=== PATIENT | female | born 1950 | race Caucasian/White ===

== ENCOUNTER 2017-11-14 04:36 | Inpatient (IN) | payer OTHER, MEDICARE ==
[~2017-11-14] VITALS: Ht 157.5 cm; Wt 102.1 kg
[~2017-11-14 04:36] MED LIST: CRESTOR40 M2 PO; LEVOTHYROXINE88 MCG PO; VENLAFAXINE HCL75 M1 PO
--- NOTE | 2017-11-14 09:30 | Operative Report ---
Operative/Inv Procedure Report Surgery Date: 11/14/17 Name of Procedure: Left total knee arthroplasty Pre-Operative Diagnosis: Primary osteoarthritis left knee Post-Operative Diagnosis: Same Estimated Blood Loss: less than 50ml Surgeon/Gasoline Pump Installer: Dilan CODY,Maxwell GEORGE Anesthesia: block IV Fluids: See anesthesia record Implants: Striker triathlon posterior stabilize knee size 3 femur, size 3 tibia, 9 mm polyethylene insert, 29 patella Drains: None Specimens: Bone to pathology Tourniquet: 54 minutes Complications: None Condition: Stable Operative Indication: Patient is a pleasant 67-year-old female who has failed conservative treatment for her primary osteoarthritis of her left knee. She was indicated for a left total knee arthroplasty. Skilled set of hands was necessary provided by physician certified first assistant Capo Ulrich who aided with retraction limb positioning and component assembly throughout the case. Risks and benefits of procedure were discussed with the patient in detail in the office and she wished to proceed. Operative/Procedure Note Note: Once informed consent was obtained and the correct limb was identified patient brought to operative room placed on table supine position. After administration of spinal anesthesia a thigh tourniquet was placed and a Tipton catheter was placed. Left lower extremity is prepped and draped in usual sterile fashion. To begin the procedure standard midline incision was made for a total knee arthroplasty. Sharp dissection was carried down through the skin and subcutaneous tissue and fat. A medial parapatellar arthrotomy was performed and the patella was everted. The fat pad is removed from the patellar tendon. Osteophytes removed patella and the thickness of the patella was measured to be 20 mm. A plan resection of 8 mm of bone was taken off the patella using patellar jig without complication. Patella was then sized to be size 29 symmetric patella. The jig for the 29 patella was placed on the patella and the lug holes were drilled. This point the patella was protected and retracted laterally. The knee is placed in flexion. The cruciate ligament to resected sharply. The medial and lateral menisci resected sharply. Step drill was used to enter the femoral canal of the femur. Intramedullary femoral distal cutting guide was placed with a 6 valgus cut and 10 mm of bone resection. Distal cut was made without, patient. The femoral sizer was placed and we sized the femur to be a size 3 femur. A size 3 4-in-1 femoral cutting block was placed and the anterior, posterior, chamfer cuts were made without compensation. Bone was passed off as specimen. The box cut for a size 3 femur was placed and the box cut was made. At this point curved osteotomes were used to remove any posterior osteophytes off the femoral condyles. Attention was then turned to the tibia. Intramedullary canal of the tibia was entered with a step drill and the intramedullary tibial cutting guide was placed. A plan resection of 4 mm of bone off the medial side of the tibia was performed. The guide was pinned in place and the cut was made. Bone was passed off as specimen. The tibia sized to be a size 3 tibia. Trial reduction was done with a size 3 femur, size 3 tibia and a 9 mm polyethylene insert. The knee had full extension and was stable to varus and valgus stress at 0 and 30 and 60 . The patella tracked nicely. Rotation of tibial cut was marked. The tibial component was pinned in place and the keel cut was made. All components removed and the knee was pulse lavaged. Cement was mixed on the back table. These components were then cemented in place with the tibial component cemented first followed by the femoral component and the patellar button. All excess cement was removed with curettes. The knee was placed in full extension with a 9 [address] trial in [address]. Once the cement was hardened the knee was taken through a range of motion again. Patient full extension and 120 of flexion. It was stable to varus and valgus stress. The trial insert was removed and 9 mm polyethylene insert was opened and locked into place on the tray. The tourniquet was released and bleeding was stopped with Bovie cautery. The arthrotomy was then closed #1 Vicryl interrupted sutures. Subcutaneous tissues closed with #1 Vicryl and 2-0 Vicryl interrupted sutures. Skin was closed betty and sterile dressings applied. Patient awakened taken recovery in stable condition.
[2017-11-14 11:47] VITALS: BP 148/86
--- NOTE | 2017-11-14 15:32 | Cons- Medical ---
Adwoa Maurice 11/14/17 1532: General Information and HPI Consulting Request Date of Consult: 11/14/17 Requested By: Dilan CODY,Maxwell Garcia Reason for Consult: Management of hypertension and hyperlipidemia Source of Information: patient History of Present Illness: Patient is a 67-year-old overweight woman with a past medical history significant for hypothyroidism, hypertension/hyperlipidemia, osteoarthritis, diverticulosis, cataract has been admitted to general medicine floor after Left total knee arthroplasty for severe primary osteoarthritis. Patient mentions that she has been in her good health except for worsening left knee pain due to her underlying osteoarthritis, underwent left total knee arthroplasty by Dr. Bey, tolerated the procedure well. At the time of evaluation patient was lying comfortably in the bed denied any chest discomfort or breathing palpitations. Pain well controlled at the site of surgery. Denies any nausea vomiting abdominal discomfort. Allergies/Medications Allergies: Coded Allergies: No Known Allergies (11/02/17) Review of Systems Review of Systems Constitutional: Denies: chills, diaphoresis, fever, malaise. EENTM: Denies: blurred vision, double vision, visual changes. Cardiovascular: Denies: chest pain, edema, orthopena. Respiratory: Denies: cough, hemoptysis, orthopnea. GI: Denies: constipation. Genitourinary: Denies: discharge, dysuria. Musculoskeletal: Denies: back pain, gout. 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 Home Services at Home: None Smoking Status: Former Smoker Exam & Diagnostic Data Last 24 Hrs of Vital Signs/I&O Vital Signs Date Time Temp Pulse Resp B/P B/P Pulse O2 O2 Flow FiO2 Mean Ox Delivery Rate 11/14 1541 97.6 71 20 146/98 94 11/14 1411 96.2 11/14 1147 95 11/14 1147 93.7 60 18 148/86 95 Room Air Intake & Output 11/14 1600 11/14 0800 11/14 0000 Intake Total Output Total 425 Balance -425 Output, Urine 425 Patient 225 lb Weight Weight Reported by Patient Measurement Method Physical Exam General Appearance: well developed/nourished, no apparent distress Head: atraumatic, normal appearance Respiratory: normal breath sounds, chest non-tender Cardiovascular: regular rate/rhythm, edema Assessment/Plan Assessment/Plan Patient is a 67-year-old overweight woman with a past medical history significant for hypothyroidism, hypertension/hyperlipidemia, osteoarthritis, diverticulosis, cataract has been admitted to general medicine floor after Left total knee arthroplasty for severe primary osteoarthritis. We have been consulted for comanagement of hypertension and hyperlipidemia, patient is currently stable from medical point a few continue home medications and pain control/anti-coagulation as per surgery. Hypertension and hyperlipidemia * Continue statins History of hypothyroidism * Continue levothyroxin Severe left knee osteoarthritis status post left total knee arthroplasty post op day 0 * Continue pain control and anticoagulation as per surgery. Consult Acknowledgment - Thank you for your consult request. Beto Jain MD 11/14/17 3001: General Information and HPI Allergies/Medications Home Med List: Apixaban (Eliquis) 2.5 MG TABLET 2.5 MG PO BID DVT PPX Docusate Sodium 100 MG CAPSULE 100 MG PO BID CONSTIPATION Levothyroxine Sodium 88 MCG TABLET 1 TAB PO DAILY REPLACEMENT (Reported) Oxycodone HCl/Acetaminophen (Percocet 5-325 MG Tablet) 5 MG-325 MG TABLET 1-2 TAB PO Q4P PRN PAIN SCALE Rosuvastatin Calcium (Crestor) 40 MG TABLET 1 TAB PO DAILY CHOLESTEROL ( Reported) Sennosides/Docusate Sodium (Senna Plus Tablet) 8.6 MG-50 MG TABLET 2 TAB PO AT BEDTIME NEEDED PRN NO BM IN TWO DAYS Venlafaxine HCl (Venlafaxine HCl ER) 75 MG CAP.ER.24H 1 CAP PO DAILY ANXIETY (Reported) Exam & Diagnostic Data Last 24 Hrs of Labs/Ministerio: NONE Assessment/Plan Consult Acknowledgment - Thank you for your consult request. Attending MD Review Statement Attending Statement Attending MD Statement: examined this patient, discuss w/resident/PA/RESEARCH WORKER ENCYCLOPEDIA, agreed w/resident/PA/RESEARCH WORKER ENCYCLOPEDIA, discussed with family, reviewed EMR data (avail), amended to note Attending Assessment/Plan: The patient is a 67 yo female with h/o hypothyroidism, hyperlipidemia, OA, SUMANTH ( on CPAP), and diverticulosis who underwent an elected left TKR today for OA of knee with progressive discomfort. Post operatively she is without complaints. Physical Exam: VS T 97.6, P 71, R 20, BP 146/98, PO 94% HEENT: eyes- PERRLA, EOMI michael- moist mucosa Neck: no adenopathy, bruits or JVD Chest: clear Cor: RRR nl S1, S2 w/o murm Abd: BS+, soft, NT Ext: s/p left TKR, no edema, pulses 2+ Neuro: alert & oriented, non-focal exam Impression/Plan: #S/P Left TKR- for OA- doing well postoperatively. Plan: Post op care as per orthopedics. #Hypothyroid- clinically euthyroid. Plan: Continue Levothyroxine. #Hyperlipidemia- on rosuvastatin. Plan: Continue statin. #SUMANTH- uses CPAP at night. Plan: Continue CPAP.
[2017-11-14 15:41] VITALS: BP 146/98
--- NOTE | 2017-11-14 17:40 | Admission Core Measures ---
Acute Coronary Syndrome (CM) ACS Core Measures Acute Coronary Syndrome Diagnosis No Congestive Heart Failure (NEW) CHF Core Measures Congestive Heart Failure Diagnosis No Cerebrovascular Accident (NEW) CVA Core Measures CVA/TIA Diagnosis No Venous Thromboembolism VTE Core Travis (View Protocol) VTE Risk Factors Surgery No Mechanical VTE Prophylaxis d/t N/A MechProphylax Ordered No VTE Pharm Prophylaxis d/t NA PharmProphylax ordered Problem List As ranked by this Provider includes Assessment & Plan 1. Unilateral primary osteoarthritis, left knee HOME MEDS Home Med List Levothyroxine Sodium 88 MCG TABLET 1 TAB PO DAILY REPLACEMENT (Reported) Rosuvastatin Calcium (Crestor) 40 MG TABLET 1 TAB PO DAILY CHOLESTEROL ( Reported) Venlafaxine HCl (Venlafaxine HCl ER) 75 MG CAP.ER.24H 1 CAP PO DAILY ANXIETY (Reported)
--- NOTE | 2017-11-14 17:40 | PN- Orthopedic ---
Subjective Subjective: No acute post operative events reported. Pain controlled presently. Pt has been oob to chair with no difficulty. No complaints of nausea or vomitting. No complaints of chest pain, shortness of breath or difficulty breathing. Has matos catheter in place. Objective Vital Signs and I&Os Vital Signs Date Time Temp Pulse Resp B/P B/P Pulse O2 O2 Flow FiO2 Mean Ox Delivery Rate 11/14 1541 97.6 71 20 146/98 94 11/14 1411 96.2 11/14 1147 95 11/14 1147 93.7 60 18 148/86 95 Room Air Intake & Output 11/14 1600 11/14 0800 11/14 0000 11/13 1600 11/13 0800 11/13 0000 Intake Total 1020 Output Total 425 Balance 595 Intake, IV 300 Intake, Oral 720 Number 0 Bowel Movements Output, Urine 425 Patient 225 lb Weight Weight Reported by Patient Measurement Method Physical Exam: General: Alert and oriented x3, no acute distress Cardiac: RRR, s1s2 Pulm: C TA bialterally, non-labored respiratory effort Abd: Soft, non-tender, non-distended Extremiteis: Moves all extremities, distal sensation grossly intact. Skin warm and well perfused. DP pulses palpable bialterally. Bilateral calves soft and non-tender Surgical site: Left knee, dressing dry and itnact. Assessment/Plan Assessment/Plan This is a 67 year old female, POD 0, s/p L TKR -Continue home meds for hld, hypothyroid -Eliquis 2.5 bid to start tomorrow for dvt ppx -ALPS today for mechanical dvt ppx -OOB, wbat, assist at all times -Diet as tolerated -DC matos and iv fluids tomorrow am -Dressing change pod 2 -Antibiotics: Vanc x1 additional dose for abx ppx Will discuss poc with Dr. Kong Core Measures Venous Thromboembolism VTE Risk Factors Surgery No Mechanical VTE Prophylaxis d/t N/A MechProphylax Ordered No VTE Pharm Prophylaxis d/t NA PharmProphylax ordered
--- NOTE | 2017-11-14 17:43 | Patient Discharge Instructions ---
Discharge Instructions General Discharge Information You were seen/treated for: Left knee pain related to unilateral primary osteoarthritis You had these procedures: Left total knee replacement Watch for these problems: Increasing pain despite the use of pain medication Increasing redness, warmth or swelling Drainage of any type from incision Inability to bear weight on operative leg Persistent nausea and vomiting Fever greater than 101.5 degrees Do not soak the wound: Yes No bath, but you may shower: Yes Other wound care: Please keep wound clean and dry. No ointments or lotions of any type on or near incision at any time. No exceptions. Your dressing will be changed by your nurse on the second day after your surgery. Daily dry dressing changes are recommended each day thereafter. Do not soak your wound in a bath at any time until otherwise indicated by your surgeon. You may shower, please dry wound immediately after shower with a clean towel. Diet Continue normal diet: Yes Recommended Diet: Regular Activity Full Activity/No Limits: No Activity Self Limited: Yes Pounds, do NOT lift more than: 10 Activity Limited to: Weight bear as tolerated Acute Coronary Syndrome Inclusion Criteria At DC or during hospital stay patient has or had the following: ACS DIAGNOSIS No Discharge Core Measures Meds if any: Prescribed or Continued at Discharge Meds if any: NOT Prescribed or Continued at Discharge Congestive Heart Failure Inclusion Criteria At DC or during hospital stay patient has or had the following: CHF DIAGNOSIS No Discharge Core Measures Meds if any: Prescribed or Continued at Discharge Meds if any: NOT Prescribed or Continued at Discharge Cerebrovascular accident Inclusion Criteria At DC or during hospital stay patient has or had the following: CVA/TIA Diagnosis No Discharge Core Measures Meds if any: Prescribed or Continued at Discharge Meds if any: NOT Prescribed or Continued at Discharge Venous thromboembolism Inclusion Criteria VTE Diagnosis No VTE Type NONE VTE Confirmed by (Test) NONE Discharge Core Measures - Per Current guidelines, there needs to be overlap - treatment for the first 5 days of Warfarin therapy. - If discharged on Warfarin prior to 5 days of - overlap therapy, the patient will need to be - assessed for post discharge needs including - *Post discharge parental anticoagulation - *Warfarin and/or parental anticoagulation education - *Follow up date to check INR post discharge At least 5 days overlap therapy as Inpatient No Meds if any: Prescribed or Continued at Discharge Note: Overlap Therapy is Warfarin and Anticoagulant Meds if any: NOT Prescribed or Continued at Discharge
--- NOTE | 2017-11-14 17:45 | Surgical Discharge Summary ---
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 Home Who Do You Live With? Patient/Self Services at Home: None What is Your Primary Language? Italian Review of Systems: See H&P Hospital Course Course Attending Physician: Maxwell Kong MD Primary Care Physician: Patient Has No Primary Care Dr Hospital Course: Patient was admitted to the hospital for an elective total joint replacement. The procedure was tolerated well and patient was transferred to a general surgical floor. Diet was advanced and tolerated.. The patient was evaluated and treated by physical therapy. At the time of hospital discharge, the vital signs were stable, neurovascular status was intact, and pain was controlled with the use of oral pain medications. Complications: None Allergies: Coded Allergies: No Known Allergies (11/02/17) Disposition Summary Disposition Principal Diagnosis: Left knee unilateral primary osteoarthritis Additional Diagnosis: None Discharge Disposition: home health services Discharge Instructions General Discharge Information Code Status: Full Code Patient's Diet: Regular, advance as tolerated Patient's Activity: WBAT Follow-Up Instructions/Appts: staple removal 2 weeks after surgery follow up with in 6 weeks Medications at Discharge Discharge Medications: Continue taking these medications: Levothyroxine Sodium (Levothyroxine Sodium) 88 MCG TABLET 1 Tablet ORAL DAILY Rosuvastatin Calcium (Crestor) 40 MG TABLET 1 Tablet ORAL DAILY Venlafaxine HCl (Venlafaxine HCl ER) 75 MG CAP.ER.24H 1 Capsule ORAL DAILY Start taking the following new medications: Apixaban (Eliquis) 2.5 MG TABLET 2.5 Milligram ORAL TWICE DAILY Qty = 60 No Refills Docusate Sodium (Docusate Sodium) 100 MG CAPSULE 100 Milligram ORAL TWICE DAILY Qty = 14 No Refills Oxycodone HCl/Acetaminophen (Percocet 5-325 MG Tablet) 5 MG-325 MG TABLET 1-2 Tablet ORAL EVERY 4 HOURS NEEDED as needed for PAIN SCALE Qty = 36 No Refills Sennosides/Docusate Sodium (Senna Plus Tablet) 8.6 MG-50 MG TABLET 2 Tablet ORAL AT BEDTIME NEEDED as needed for NO BM IN TWO DAYS Qty = 10 No Refills
[2017-11-14 22:49] VITALS: BP 120/70
[2017-11-15 04:00] VITALS: BP 126/68
[2017-11-15 07:52] LABS: ABSOLUTE BASOPHIL COUNT 0 /CUMM (0.0-0.2); ABSOLUTE EOSINOPHIL COUNT 0 /CUMM (0.0-0.7); ABSOLUTE GRANULOCYTE CT 7.2 /CUMM (1.4-6.5); ABSOLUTE LYMPH COUNT 1.1 /CUMM (1.2-3.4); ABSOLUTE MONOCYTE COUNT 0.9 /CUMM (0.10-0.60); BASOPHIL % 0.2 % (0.0-2.0); EOSINOPHIL % 0 % (0-5); GRANULOCYTE % 78.5 % (42.2-75.2); HEMATOCRIT 35.2 % (37-47); MEAN CORPUSCULAR HGB CONC 33.7 G/DL (33.0-37.0); MEAN PLATELET VOLUME 7.7 FL (7.4-10.4); PLATELET COUNT 285 /CUMM (130-400); RBC DISTRIBUTION WIDTH 14.9 % (11.5-14.5); RED BLOOD CELL CT 3.71 /CUMM (4.20-5.40); WHITE BLOOD CELL COUNT 9.2 /CUMM (4.8-10.8)
--- NOTE | 2017-11-15 07:54 | PN- Orthopedic ---
Subjective Subjective: Patient feels well, minimal pain, no acute events overnight, she is in good spirits, she is tolerating her diet and voiding. She has been up and ambulatory without difficulty Objective Vital Signs and I&Os Vital Signs Date Time Temp Pulse Resp B/P B/P Pulse O2 O2 Flow FiO2 Mean Ox Delivery Rate 11/15 0400 97.9 71 18 126/68 95 CPAP 11/15 0000 CPAP 11/14 2249 97.7 69 18 120/70 94 CPAP 11/14 1541 97.6 71 20 146/98 94 11/14 1411 96.2 11/14 1147 95 11/14 1147 93.7 60 18 148/86 95 Room Air Intake & Output 11/15 0811/15 0000 11/14 1600 11/14 0800 11/14 0000 11/13 1600 Intake Total 1500 1020 Output Total 900 700 425 Balance -900 800 595 Intake, IV 600 300 Intake, Oral 900 720 Number 0 0 Bowel Movements Output, Urine 900 700 425 Patient 225 lb Weight Weight Reported by Patient Measurement Method Physical Exam: Well-developed well-nourished no apparent distress. HEENT: Atraumatic, extraocular motion intact Neck: Supple, no lymphadenopathy Respiratory: No respiratory distress Extremities: No edema LEFT lower extremity dressing in place, Dressing clean dry and intact Mild joint effusion Range of motion is 0-90. Compression wrap in place. ALPS in place Neurovascularly intact distally Bilateral calves are supple, nontender. Neuro: Alert and oriented x3 Psych: Mood affect normal, normal memory normal judgment. Skin: Warm and dry, no rash on exposed skin Results Last 48 Hours of Labs: Laboratory Tests 11/15 0650 Chemistry Sodium Pending Potassium Pending Chloride Pending Carbon Dioxide Pending Anion Gap Pending BUN Pending Creatinine Pending BUN/Creatinine Ratio Pending Hematology CBC w Diff Pending WBC Pending RBC Pending Hgb Pending Hct Pending MCV Pending MCH Pending MCHC Pending RDW Pending Plt Count Pending MPV Pending Assessment/Plan Assessment/Plan Postop day #1 status post left total knee arthroplasty Perioperative antibiotics. Pain medication as needed. Out of bed Physical therapy, weightbearing as tolerated DC IV fluids DC Tipton catheter Regular diet Follow a.m. labs Eliquis for DVT prophylaxis ALPS for DVT prophylaxis Regular home meds Dressing change postop day 2 Plan for discharge on postop day #3, home with [facility] services versus [facility] facility (patient prefers home) Pt seen and examined by Dr Kong as well. Core Measures Venous Thromboembolism VTE Risk Factors Surgery No Mechanical VTE Prophylaxis d/t N/A MechProphylax Ordered No VTE Pharm Prophylaxis d/t NA PharmProphylax ordered
--- NOTE | 2017-11-15 08:05 | PN- Medicine Consult ---
See Addendum Assessment/PlanMedical Consult Assessment/Plan Assessment: This is a 67-year-old female with past medical history significant for hypothyroidism, hypertension/hyperlipidemia, osteoarthritis, diverticulosis, cataract who is admitted to surgical team for Left total knee arthroplasty for severe primary osteoarthritis. POD 1. Problem list: #Hypertension #Hyperlipidemia #Hypothyroidism #Severe left knee osteoarthritis status post left total knee arthroplasty post op day 1 Plan: Recommendations: -c/w current meds; statin and levothyroxin -Mx of left total knee arthroplasty per primary team Case to be discussed with attending Dr. Jain. Please refer to his addendum for further recs. Problem List: 1. Unilateral primary osteoarthritis, left knee Subjective Subjective: The patient was seen and examined. She offers no complains. The patient denies any headache, nausea, vomiting, dizziness, lightheadedness, chest pain, shortness of breath, abdominal pain, urinary symptoms. VSS. No events reported. Review of Systems Constitutional: Denies: see HPI. Objective Last 24 Hrs of Vital Signs/I&O Vital Signs Date Time Temp Pulse Resp B/P B/P Pulse O2 O2 Flow FiO2 Mean Ox Delivery Rate 11/15 0400 97.9 71 18 126/68 95 CPAP 11/15 0000 CPAP 11/14 2249 97.7 69 18 120/70 94 CPAP 11/14 1541 97.6 71 20 146/98 94 11/14 1411 96.2 11/14 1147 95 11/14 1147 93.7 60 18 148/86 95 Room Air Intake & Output 11/15 1600 11/15 0800 11/15 0000 Intake Total 720 1500 Output Total 900 700 Balance -180 800 Intake, IV 600 600 Intake, Oral 120 900 Number 0 Bowel Movements Output, Urine 900 700 Physical Exam General Appearance: no apparent distress, alert, awake Head: atraumatic Neck: supple Cardiovascular: regular rate/rhythm Respiratory: normal breath sounds, chest non-tender, no respiratory distress Abdomen: normal bowel sounds, soft, non-tender, no organomegaly Back: normal inspection Extremities: normal inspection, no edema, s/p left TKR Current Medications: Current Medications Sig/Esau Start time Last Medication Dose Route Stop Time Status Admin Albuterol Sulfate 2 PUF Q4 11/15 1400 DC INH Albuterol Sulfate 2 PUF Q4P PRN 11/15 1115 AC INH Apixaban 2.5 MG BID 05/10 0900 AC 11/15 PO 09 Atorvastatin Calcium 80 MG 1700 11/14 1700 AC 11/14 PO 170 Celecoxib 400 MG DAILY 11/15 899 AC 11/15 PO 09 Celecoxib 400 MG ONCE 11/14 0000 DC PO 11/14 235 Dextrose/Lactated 1,000 ML Q13H 11/14 1145 DC 11/15 Ringer's IV 0429 Docusate Sodium 100 MG BID 11/14 2100 AC 11/15 PO 09 Docusate Sodium 100 MG DAILY NEEDED PRN 11/14 1145 DC PO Levothyroxine Sodium 0.088 MG DAILY AC 11/15 07 AC 11/15 PO 0657 Morphine Sulfate 2 MG Q2P PRN 11/14 1800 AC IV Morphine Sulfate 2 MG Q3P PRN 11/14 1145 DC IV Morphine Sulfate 4 MG Q3P PRN 11/14 1145 DC IV Ondansetron HCl 4 MG Q6P PRN 11/14 1145 AC IV Oxycodone HCl 10 MG ONCE 11/14 0000 DC PO 11/14 2359 Oxycodone/ 1 TAB Q4P PRN 11/14 1145 AC Acetaminophen PO Oxycodone/ 2 TAB Q4P PRN 11/14 1145 AC Acetaminophen PO Polyethylene Glycol 17 GM DAILY 11/15 899 AC 11/15 PO 09 Polyethylene Glycol 17 GM DAILY NEEDED PRN 11/14 1145 DC PO Senna/Docusate Sodium 2 TAB AT BEDTIME NEED.. 11/14 1145 AC PO Vancomycin HCl 1,500 MG ONCE ONE 11/14 1900 DC 11/14 Sodium Chloride 250 ML IV 11/14 2028 183 Vancomycin HCl 1,500 MG ONCE 11/14 0000 CAN Sodium Chloride 250 ML IV 11/14 2358 Vancomycin HCl 1,500 MG ONCE 11/14 0000 DC Sodium Chloride 250 ML IV 11/14 2358 Venlafaxine HCl 75 MG DAILY 11/15 899 AC 11/15 PO 900 Results Last 24 Hrs Lab/[facility] Results: Laboratory Tests 11/15/17 0650: Anion Gap 12, Estimated GFR > 60, BUN/Creatinine Ratio 16.7, CBC w Diff NO MAN DIFF REQ, RBC 3.71 L, MCV 95.0, MCH 32.0 H, MCHC 33.7, RDW 14.9 H, MPV 7.7, Gran % 78.5 H, Lymphocytes % 12.1 L, Monocytes % 9.2, Eosinophils % 0, Basophils % 0.2, Absolute Granulocytes 7.2 H, Absolute Lymphocytes 1.1 L, Absolute Monocytes 0.9 H, Absolute Eosinophils 0, Absolute Basophils 0
[2017-11-15] MEDS ORDERED: ELIQUIS2.5 M1 PO (10:51)
[2017-11-15] MEDS ORDERED: DOCUSATE SODIU100 M3 PO (10:51)
[2017-11-15] MEDS ORDERED: PERCOCET 5-3251 EACH PO (10:51)
[2017-11-15] MEDS ORDERED: SENNA PLUS TAB1 EACH PO (10:51)
[2017-11-15 11:44] VITALS: BP 130/70
[2017-11-15 14:13] VITALS: BP 140/70
[2017-11-15 22:30] VITALS: BP 136/72
[2017-11-16 06:45] VITALS: BP 138/80
--- NOTE | 2017-11-16 07:32 | PN- Orthopedic ---
Subjective Subjective: Reports pain controlled with percocet. Doing well with PT. No dizziness. No shortness of breath. No chest pains. Tolerating diet. No nausea. Passing flatus, but no bm yet. Voiding well. Anticipates discharge to home tomorrow. Objective Vital Signs and I&Os Vital Signs Date Time Temp Pulse Resp B/P B/P Pulse O2 O2 Flow FiO2 Mean Ox Delivery Rate 11/16 0645 98.0 60 20 138/80 96 Room Air 11/16 0000 94 Room Air 11/15 2230 98.1 74 18 136/72 94 11/15 1600 Room Air 11/15 1413 98.3 74 20 140/70 94 Room Air 11/15 1144 98.8 67 20 130/70 93 Room Air Intake & Output 11/16 0811/16 0000 11/15 1600 11/15 0800 11/15 0000 11/14 1600 Intake Total 307 747 9256 1020 Output Total 1000 300 400 900 700 425 Balance -1000 180 -400 -180 800 595 Intake, IV 600 600 300 Intake, Oral 480 120 900 720 Number 0 0 Bowel Movements Output, Urine 1000 300 400 900 700 425 Patient 225 lb Weight Weight Reported by Patient Measurement Method Physical Exam: General - alert & oriented x 3. comfortable. no acute distress. Lungs - clear bilaterally. no w/r/r. Cardiac - s1s2. reg. Abdomen - soft. nontender. Extremities - warm bilaterally. left leg dressing removed. incision well approximated with betty. no erythema or exudates. calves soft and nontender b/ l. nvi. Current Medications: Current Medications Sig/Esau Start time Last Medication Dose Route Stop Time Status Admin Albuterol Sulfate 2 PUF Q4 11/15 1400 DC INH Albuterol Sulfate 2 PUF Q4P PRN 11/15 1115 AC 11/15 INH 1211 Apixaban 2.5 MG BID 11/15 09 AC 11/15 PO 2023 Atorvastatin Calcium 80 MG 1700 11/14 1700 AC 11/15 PO 1633 Bisacodyl 10 MG DAILY PRN 11/16 0730 UNVr HI Celecoxib 400 MG DAILY 11/15 899 AC 11/15 PO 09 Dextrose/Lactated 1,000 ML Q13H 11/14 1145 DC 11/15 Ringer's IV 0429 Docusate Sodium 100 MG BID 11/14 2100 AC 11/15 PO 2024 Levothyroxine Sodium 0.088 MG DAILY AC 11/15 0700 AC 11/16 PO 05 Morphine Sulfate 2 MG Q2P PRN 11/14 1800 AC IV Ondansetron HCl 4 MG Q6P PRN 11/14 114 AC IV Oxycodone/ 1 TAB Q4P PRN 11/14 1145 AC 11/15 Acetaminophen PO 2024 Oxycodone/ 2 TAB Q4P PRN 11/14 114 AC Acetaminophen PO Patient Medication 1 ED ONE ONE 11/15 1644 DC 11/15 [facility] ED 11/15 Polyethylene Glycol 17 GM DAILY 11/15 899 AC 11/15 PO 900 Senna/Docusate Sodium 2 TAB AT BEDTIME NEED.. 11/14 114 AC 11/15 PO 2024 Venlafaxine HCl 75 MG DAILY 11/15 899 AC 11/15 PO 900 Results Last 48 Hours of Labs: Laboratory Tests 11/15 0650 Chemistry Sodium (137 - 145 mmol/L) 139 Potassium (3.5 - 5.1 mmol/L) 3.9 Chloride (98 - 107 mmol/L) 104 Carbon Dioxide (22 - 30 mmol/L) 23 Anion Gap (5 - 16) 12 BUN (7 - 17 mg/dL) 10 Creatinine (0.5 - 1.0 mg/dL) 0.6 Estimated GFR (>60 ml/min) > 60 BUN/Creatinine Ratio (7 - 25 %) 16.7 Hematology CBC w Diff NO MAN DIFF REQ WBC (4.8 - 10.8 /CUMM) 9.2 RBC (4.20 - 5.40 /CUMM) 3.71 L Hgb (12.0 - 16.0 G/DL) 11.9 L Hct (37 - 47 %) 35.2 L MCV (81.0 - 99.0 FL) 95.0 MCH (27.0 - 31.0 PG) 32.0 H MCHC (33.0 - 37.0 G/DL) 33.7 RDW (11.5 - 14.5 %) 14.9 H Plt Count (130 - 400 /CUMM) 285 MPV (7.4 - 10.4 FL) 7.7 Gran % (42.2 - 75.2 %) 78.5 H Lymphocytes % (20.5 - 51.1 %) 12.1 L Monocytes % (1.7 - 9.3 %) 9.2 Eosinophils % (0 - 5 %) 0 Basophils % (0.0 - 2.0 %) 0.2 Absolute Granulocytes (1.4 - 6.5 /CUMM) 7.2 H Absolute Lymphocytes (1.2 - 3.4 /CUMM) 1.1 L Absolute Monocytes (0.10 - 0.60 /CUMM) 0.9 H Absolute Eosinophils (0.0 - 0.7 /CUMM) 0 Absolute Basophils (0.0 - 0.2 /CUMM) 0 Assessment/Plan Assessment/Plan This 67 year old female with hx hypothyroidism, hld, and anxiety, is POD#2 s/p left total knee arthroplasty, doing well pain controlled with percocet tolerating diet would like her peripheral iv removed if possible (not requiring iv meds) continue PT dressing changed bowel regime ordered. dulcolax added prn continue eliquis - dvt ppx sending prescriptions to [facility] per her request anticipate discharge to home with vna tomorrow will d/w Core Measures Venous Thromboembolism VTE Risk Factors Surgery No Mechanical VTE Prophylaxis d/t N/A MechProphylax Ordered No VTE Pharm Prophylaxis d/t NA PharmProphylax ordered
--- NOTE | 2017-11-16 10:53 | PN- Medicine Consult ---
See Addendum Assessment/PlanMedical Consult Assessment/Plan Assessment: Assessment: This is a 67-year-old female with past medical history significant for hypothyroidism, hypertension/hyperlipidemia, osteoarthritis, diverticulosis, cataract who is admitted to surgical team for Left total knee arthroplasty for severe primary osteoarthritis. POD 2. Problem list: #Hypertension #Hyperlipidemia #Hypothyroidism #Severe left knee osteoarthritis status post left total knee arthroplasty post op day 2 Plan: Recommendations: -c/w current meds; statin and levothyroxin -Mx of left total knee arthroplasty per primary team Case to be discussed with attending Dr. Jain. Please refer to his addendum for further recs. Problem List: 1. Unilateral primary osteoarthritis, left knee Subjective Subjective: The patient was seen and examined this morning. She offers no complaints, denies any headache, nausea, vomiting, dizziness, lightheadedness, chest pain, shortness of breath, abdominal pain, urinary symptoms. VSS. No events reported. Review of Systems Constitutional: Reports: no symptoms. Objective Last 24 Hrs of Vital Signs/I&O Vital Signs Date Time Temp Pulse Resp B/P B/P Pulse O2 O2 Flow FiO2 Mean Ox Delivery Rate 11/16 0800 Room Air 11/16 0645 98.0 60 20 138/80 96 Room Air 11/16 0000 94 Room Air 11/15 2230 98.1 74 18 136/72 94 / 1600 Room Air Intake & Output 11/16 1600 11/16 0800 05/11 0000 Intake Total 480 Output Total 400 1000 300 Balance -400 -1000 180 Intake, Oral 480 Number 3 Bowel Movements Output, Urine 400 1000 300 Physical Exam General Appearance: no apparent distress, alert, awake, comfortable Other Physical Findings: Head: atraumatic Neck: supple Cardiovascular: regular rate/rhythm Respiratory: normal breath sounds, chest non-tender, no respiratory distress Abdomen: normal bowel sounds, soft, non-tender, no organomegaly Back: normal inspection Extremities: normal inspection, no edema, s/p left TKR Current Medications: Current Medications Sig/Esau Start time Last Medication Dose Route Stop Time Status Admin Albuterol Sulfate 2 PUF Q4P PRN 11/15 1115 DCD 11/15 INH 1211 Apixaban 2.5 MG BID 11/15 0900 DCD 11/16 PO 0853 Atorvastatin Calcium 80 MG 1700 11/14 1700 DCD 11/15 PO 1633 Bisacodyl 10 MG DAILY PRN 11/16 0730 DCD SC Celecoxib 400 MG DAILY 11/15 09 DCD 11/16 PO 0853 Docusate Sodium 100 MG BID 11/14 2100 DCD 11/15 PO 2024 Levothyroxine Sodium 0.088 MG DAILY AC 11/15 07 DCD 11/16 PO 0558 Morphine Sulfate 2 MG Q2P PRN 11/14 1800 DCD IV Ondansetron HCl 4 MG Q6P PRN 11/14 1145 DCD IV Oxycodone/ 1 TAB Q4P PRN 11/14 1145 DCD 11/16 Acetaminophen PO 0853 Oxycodone/ 2 TAB Q4P PRN 11/14 1145 DCD Acetaminophen PO Patient Medication 1 ED ONE ONE 11/16 0945 MT Teaching ED 11/16 0946 Patient Medication 1 ED ONE ONE 11/15 1645 DC 11/15 Teaching ED 11/15 1646 2028 Polyethylene Glycol 17 GM DAILY 11/15 899 DCD 11/15 PO 0901 Senna/Docusate Sodium 2 TAB AT BEDTIME NEED.. 11/14 1145 DCD 11/15 PO 2024 Venlafaxine HCl 75 MG DAILY 11/15 09 DCD 11/16 PO 0853 Results Last 24 Hrs Lab/[facility] Results: ..
--- NOTE | 2017-11-16 12:20 | RADIOLOGY REPORT ---
EXAMINATION: XR KNEE, LEFT CLINICAL INFORMATION: Status post left total knee arthroplasty. COMPARISON: None TECHNIQUE: Two views of the left knee. FINDINGS: Prosthetic components of the left total knee arthroplasty are appropriately aligned. No periprosthetic fracture. Gas from recent surgery is present in the joint and surrounding soft tissues. A joint effusion is present. IMPRESSION: Appropriate alignment of the left total knee arthroplasty without evidence of complications.
== END 2017-11-16 12:30 | disposition home health service (06) | DRG 470 ==
LOC: SDA 04:36 → ENRESERV 09:49 → ENTRNSPT 10:53 → EDTRNSPTSTS 11:08 → EDTRNSPT 11:08 → 2NA 11:23 → CMPTRNSPT 11:31 → ENPENDDIS 11-16 10:01 → ENTRNSPT 11-16 12:15 → EDTRNSPTSTS 11-16 12:25 → EDTRNSPT 11-16 12:25 → 2NA 11-16 12:30 → CMPTRNSPT 11-16 12:46
PROVIDERS: Physician Assistant Surgical
PROC: 0SRD0J9 Replacement of Left Knee Joint with Synthetic Substitute, Cemented, Open Approach (ICD-10-PCS; principal; 2017-11-14)
PROC: 3E0T3BZ Introduction of Anesthetic Agent into Peripheral Nerves and Plexi, Percutaneous Approach (ICD-10-PCS; principal; 2017-11-14)
DX: M17.12 Unilateral primary osteoarthritis, left knee (principal); Z68.41 Body mass index [BMI] 40.0-44.9, adult; E03.9 Hypothyroidism, unspecified; E78.5 Hyperlipidemia, unspecified; I10 Essential (primary) hypertension; K57.90 Diverticulosis of intestine, part unspecified, without perforation or abscess without bleeding; H26.9 Unspecified cataract; F41.9 Anxiety disorder, unspecified; E66.9 Obesity, unspecified; G47.33 Obstructive sleep apnea (adult) (pediatric)
CPT/HCPCS: 2NASP; 36415; 36592; 73560-LT; 82436; 87086; 88305; 97110-GO; 97116-GO; 97161-GP; 97530-GO; C1713; C9290; J0131; J1100; J2405; J3370; J3490; J7040

== ENCOUNTER 2017-12-02 22:30 | Emergency (ER) | payer OTHER, MEDICARE ==
[~2017-12-02 22:30] MED LIST changes: +DOCUSATE SODIU100 M3 PO; +ELIQUIS2.5 M1 PO; +PERCOCET 5-3251 EACH PO; +SENNA PLUS TAB1 EACH PO
--- NOTE | 2017-12-02 22:40 | ED UPPER/LOWER EXTREMITY COMPL ---
History of Present Illness General Chief Complaint: General Adult Stated Complaint: BIBA FOR EVAL OF BLEEDING FROM SURGICAL Source: patient Exam Limitations: no limitations Vital Signs & Intake/Output Vital Signs & Intake/Output Vital Signs Date Time Temp Pulse Resp B/P B/P Pulse O2 O2 Flow FiO2 Mean Ox Delivery Rate 12/03 2235 98.2 87 20 127/70 99 Room Air Allergies Coded Allergies: No Known Allergies (11/02/17) Reconcile Medications Apixaban (Eliquis) 2.5 MG TABLET 2.5 MG PO BID DVT PPX Docusate Sodium 100 MG CAPSULE 100 MG PO BID CONSTIPATION Levothyroxine Sodium 88 MCG TABLET 1 TAB PO DAILY REPLACEMENT (Reported) Oxycodone HCl/Acetaminophen (Percocet 5-325 MG Tablet) 5 MG-325 MG TABLET 1-2 TAB PO Q4P PRN PAIN SCALE Rosuvastatin Calcium (Crestor) 40 MG TABLET 1 TAB PO DAILY CHOLESTEROL ( Reported) Sennosides/Docusate Sodium (Senna Plus Tablet) 8.6 MG-50 MG TABLET 2 TAB PO AT BEDTIME NEEDED PRN NO BM IN TWO DAYS Venlafaxine HCl (Venlafaxine HCl ER) 75 MG CAP.ER.24H 1 CAP PO DAILY ANXIETY (Reported) Triage Note: PT BIBA FROM [facility]. PT IS S/P LEFT KNEE REPLACEMENT ON 11/14/17 WITH SUTURES REMOVED 11/29/17. PT AND EMS REPORT THAT PT WAS WALKING TO THE BATHROOM IN THE DARK BETWEEN 9-930 PM WHEN SHE SLIPPED AND FELL TO THE SAME KNEE AND SURGICAL AREA COMPLETELY OPENED. EMS REPORTS 13cm OPEN AREA AND APPROX 300mL BLOOD LOSS. PT ARRIVES A&O, ANXIOUS. BLEEDING CONTROLLED BY EMS WITH ENEDINA AND ALINE. VSS Triage Nurses Notes Reviewed? yes Onset: Abrupt Duration: minute(s): Timing: single episode today Severity: moderate Pain/Injury Location: Left: Knee. Method of Injury: fall Associated Symptoms: left knee pain, w/ dehiscence of surgical wound HPI: 67 yo woman s/p left knee replacement had sutures removed last week presents after a fall to her left knee. She notes a mechanical fall and landed on her left knee. Her surgical wound dehisced, 911 called. Bleeding easily controlled with compression. Pt is on eliquis to prevent dvt. She is otherwise well. Past History Travel History Traveled to [place] past 21 day No Medical History Any Pertinent Medical History? 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 No Review of Systems Review of Systems Constitutional: Reports: no symptoms. EENTM: Reports: no symptoms. Respiratory: Reports: no symptoms. Cardiovascular: Reports: no symptoms. Gastrointestinal/Abdominal: Reports: no symptoms. Genitourinary: Reports: no symptoms. Musculoskeletal: Reports: no symptoms. Skin: Reports: no symptoms. Neurological/Psychological: Reports: no symptoms. Hematologic/Endocrine: Reports: no symptoms. Immunological: Reports: no symptoms. All Other Systems: Reviewed and Negative Physical Exam Physical Exam General Appearance: well developed/nourished, mild distress Head: atraumatic Eyes: Bilateral: normal appearance. Leg Left: left knee with open surgical wound, mild oozing blood, no active bleeding. no deformity. 40CM Progress Differential Diagnosis: contusion, dislocation, fracture, tendon injury, wound dehiscence. Plan of Care: Orders Procedure Date/time Status XRY-KNEE COMPLETE LEFT 12/02 2238 Active Current Medications Sig/Esau Start time Last Medication Dose Stop Time Status Admin Cefazolin Sodium 1,000 MG ONCE ONE 12/02 2244 UNVr (Kefzol-Ancef Inj) 12/02 2245 Lidocaine 20 ML ONCE ONE 12/02 2244 UNVr (Lidocaine 1%) 12/02 2245 Diagnostic Imaging: Viewed by Me: Radiology Read. Discussed w/RAD: Radiology Read. Radiology Impression: PATIENT: AMISH MARRUFO PRESENT AGE: 67 PATIENT ACCOUNT NO: [id number] : 50 LOCATION: [facility] ORDERING PHYSICIAN: Nitesh Phillips MD SERVICE DATE: 12/02/17 EXAM TYPE: RAD - XRY-KNEE COMPLETE LEFT EXAMINATION: XR KNEE, LEFT CLINICAL INFORMATION: Contusion COMPARISON: None TECHNIQUE: Four views of the left knee. FINDINGS: Status post total knee replacement. Device properly positioned. Bone alignments are maintained. No radiographic evidence of device loosening. Patella properly positioned. There are vascular calcifications. IMPRESSION: Total knee replacement. No fracture. DICTATED BY: Chela Sanders MD DATE/TIME DICTATED:2329 PELLETIZER:MARA DATE/TIME TRANSCRIBED:12/02/172329 CONFIDENTIAL, DO NOT COPY WITHOUT APPROPRIATE AUTHORIZATION. <Electronically signed in Other Vendor System> SIGNED BY: Chela Sanders MD 12/02/172334 Departure Departure Disposition: HOME OR SELF CARE Condition: Stable Clinical Impression Primary Impression: Wound dehiscence Referrals: Patient Has No Primary Care Dr Departure Forms: Customer Survey General Discharge Information Comments excellent repair of wound... 15 sutures placed... pt will follow up with dr. wei tomorrow. 3 diego wrap and surgicell dressing... pt being discharged back to physical rehab. Procedures Laceration/Wound Repair Laceration/Wound Repair: Wound Location: LEFT KNEE Wound's Depth, Shape: into muscle Wound Length (cm): 40 Irrigated w/ Saline (ccs): 1999 Betadine Prep? Yes Anesthesia: 1% lidocaine Volume Anesthetic (ccs): 20 Wound Repaired With: sutures Suture Size/Type: 3:0, nylon Number of Sutures: 15 Progress: TETANUS SHOT <5 YEARS
--- NOTE | 2017-12-02 23:35 | RADIOLOGY REPORT ---
EXAMINATION: XR KNEE, LEFT CLINICAL INFORMATION: Contusion COMPARISON: None TECHNIQUE: Four views of the left knee. FINDINGS: Status post total knee replacement. Device properly positioned. Bone alignments are maintained. No radiographic evidence of device loosening. Patella properly positioned. There are vascular calcifications. IMPRESSION: Total knee replacement. No fracture.
[2017-12-03 01:14] VITALS: BP 110/66
== END 2017-12-03 01:47 ==
LOC: ERH 22:30
DX: T81.33XA Disruption of traumatic injury wound repair, initial encounter (principal); W19.XXXA Unspecified fall, initial encounter; Y93.9 Activity, unspecified; Y92.9 Unspecified place or not applicable
CPT/HCPCS: 73562-LT; 96374; 96375; J0690; J2001

== ENCOUNTER 2017-12-12 04:08 | Inpatient (IN) | payer OTHER, MEDICARE ==
[~2017-12-12] VITALS: Ht 157.5 cm; Wt 105.9 kg
--- NOTE | 2017-12-12 12:50 | Admission Core Measures ---
Acute Coronary Syndrome (CM) ACS Core Measures Acute Coronary Syndrome Diagnosis No Congestive Heart Failure (NEW) CHF Core Measures Congestive Heart Failure Diagnosis No Cerebrovascular Accident CVA Core Measures CVA/TIA Diagnosis No Venous Thromboembolism VTE Core Travis (View Protocol) VTE Risk Factors Surgery No Mechanical VTE Prophylaxis d/t N/A MechProphylax Ordered No VTE Pharm Prophylaxis d/t NA PharmProphylax ordered Problem List As ranked by this Provider includes Assessment & Plan 1. Infection of total left knee replacement HOME MEDS Home Med List Apixaban (Eliquis) 2.5 MG TABLET 1 TAB PO DAILY VTE PROPHYLAXIS (Reported) Docusate Sodium 100 MG CAPSULE 100 MG PO BID CONSTIPATION Levothyroxine Sodium 88 MCG TABLET 1 TAB PO DAILY REPLACEMENT (Reported) Oxycodone HCl/Acetaminophen (Percocet 5-325 MG Tablet) 5 MG-325 MG TABLET 1-2 TAB PO Q4P PRN PAIN SCALE Rosuvastatin Calcium (Crestor) 40 MG TABLET 1 TAB PO DAILY CHOLESTEROL ( Reported) Sennosides/Docusate Sodium (Senna Plus Tablet) 8.6 MG-50 MG TABLET 2 TAB PO AT BEDTIME NEEDED PRN NO BM IN TWO DAYS Venlafaxine HCl (Venlafaxine HCl ER) 75 MG CAP.ER.24H 1 CAP PO DAILY ANXIETY (Reported)
--- NOTE | 2017-12-12 12:50 | Operative Report ---
Operative/Inv Procedure Report Surgery Date: 12/12/17 Name of Procedure: Irrigation debridement irrigation and debridement left total knee arthroplasty Exchange of polyethylene left total knee R plasty Pre-Operative Diagnosis: Infected left total knee arthroplasty Post-Operative Diagnosis: Same Estimated Blood Loss: 50ml to 100ml Surgeon/Hhas: Dilan CODY,Maxwell GEORGE Anesthesia: laryngeal mask airway IV Fluids: See anesthesia record Implants: Terry polyethylene 9 mm insert for 3 tibial tray posterior stabilized Drains: None Specimens: Soft tissue was sent microbiology and pathology. The polyethylene was sent to pathology Microbiology: Soft tissue Tourniquet: 18 minutes Complications: None Condition: Stable Operative Indication: Patient's a 67-year-old female who is 4 weeks status post left total knee arthroscopy. Following the removal of her betty in the office 2 weeks ago at which time there were no signs of infection the patient slipped and fell in her bathroom the following day. She came to the emergency room [facility] where she was closed primarily by the emergency room physician. Orthopedic service had no knowledge of the event. She has been followed in the office for the past 2 weeks and yesterday there is increasing erythema with drainage from the incision. She was indicated for irrigation debridement and exchange of polyethylene. The risks and benefits of procedure discussed with the patient detail. Skilled set of hands was necessary provided by physician social worker assistant Capo Ulrich weighted with retraction and positioning and exchange of the component. Operative/Procedure Note Note: Once informed consent was obtained and the correct limb was identified the patient brought to operative room placed on table supine position. After administration of general endotracheal anesthesia a thigh tourniquet was placed in the left lower 70 is prepped and draped usual sterile fashion. To begin the procedure the incision stitches were removed and passed off. Incision opened was opened and the tourniquet was inflated to 300 mmHg. There was no significant gross purulence in the superficial compartment of the knee. A medial parapatellar arthrotomy was then opened. There was some cloudy fluid that was sent off as specimen also tissue from the deep knee arthrotomy and synovial tissue was sent as with a pathology specimen and microbiology culture and sensitivity. The polyethylene insert was removed with an osteotome. The knee and prosthesis were then pulse lavaged with 3 L sterile saline. A Betadine soaked sponges was also used to scrub the prosthesis. Once we had adequate debridement of tissue a 9 mm polyethylene insert was opened and placed back onto the tibial tray without complication. The arthrotomy was then closed with #1 Vicryl sutures. The superficial wound was then pulse lavaged with another 3 L of sterile saline. The tissues were then closed with #2 Vicryl interrupted sutures. The skin was closed with 2-0 nylon interrupted sutures. Sterile dressing was applied and patient was awakened taken recovery in stable condition.
--- NOTE | 2017-12-12 12:53 | Patient Discharge Instructions ---
Discharge Instructions General Discharge Information You were seen/treated for: Infection left total knee replacment You had these procedures: I&D left total knee replacement with poly exchange Watch for these problems: Increasing pain despite the use of pain medication Increasing redness, warmth or swelling Drainage of any type from incision Inability to bear weight on operative leg Persistent nausea and vomiting Fever greater than 101.5 degrees Do not soak the wound: Yes No bath, but you may shower: Yes Other wound care: Please keep wound clean and dry. No ointments or lotions of any type on or near incision at any time. No exceptions. Your dressing will be changed by your nurse on the second day after your surgery. Daily dry dressing changes are recommended each day thereafter. Do not soak your wound in a bath at any time until otherwise indicated by your surgeon. You may shower, please dry wound immediately after shower with a clean towel. Special Instructions: Infectious Disease recs (Dr. Matias): - Continue Oxacillin for 6 weeks (until 01/23/18), then change to p.o. Keflex 500 mg every 6 hours for 6 months (until 07/26/17) - Continue Rifampin (until 07/26/17) - Weekly CBC, ESR and CMP while on Oxacillin Diet Continue normal diet: Yes Recommended Diet: Regular Acute Coronary Syndrome Inclusion Criteria At DC or during hospital stay patient has or had the following: ACS DIAGNOSIS No Discharge Core Measures Meds if any: Prescribed or Continued at Discharge Meds if any: NOT Prescribed or Continued at Discharge Congestive Heart Failure Inclusion Criteria At DC or during hospital stay patient has or had the following: CHF DIAGNOSIS No Discharge Core Measures Meds if any: Prescribed or Continued at Discharge Meds if any: NOT Prescribed or Continued at Discharge Cerebrovascular accident Inclusion Criteria At DC or during hospital stay patient has or had the following: CVA/TIA Diagnosis No Discharge Core Measures Meds if any: Prescribed or Continued at Discharge Meds if any: NOT Prescribed or Continued at Discharge Venous thromboembolism Inclusion Criteria VTE Diagnosis No VTE Type NONE VTE Confirmed by (Test) NONE Discharge Core Measures - Per Current guidelines, there needs to be overlap - treatment for the first 5 days of Warfarin therapy. - If discharged on Warfarin prior to 5 days of - overlap therapy, the patient will need to be - assessed for post discharge needs including - *Post discharge parental anticoagulation - *Warfarin and/or parental anticoagulation education - *Follow up date to check INR post discharge At least 5 days overlap therapy as Inpatient No Meds if any: Prescribed or Continued at Discharge Note: Overlap Therapy is Warfarin and Anticoagulant Meds if any: NOT Prescribed or Continued at Discharge
--- NOTE | 2017-12-12 12:58 | Surgical Discharge Summary ---
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 Patient/Self Services at Home: None What is Your Primary Language? Kinyarwanda Review of Systems: see H&P Hospital Course Course Attending Physician: Maxwell Kong MD Primary Care Physician: Jose L Larson APRN [facility] Course: Estelita was admitted to the hospital for an I&D of an infected total joint replacement with poly exchange. She tolerated the procedure well and was transferred to a general surgical floor. She was evaluated by infectious disease and recommendations were made. Her diet was advanced and tolerated. She was evaluated and treated by physical therapy. At the time of hospital discharge, her pain was controlled with po pain medication, her neurovascular status was intact and her vital signs were stable and within normal limits. She was deemed appropriate for discharge. *Pt has LUE PICC line in place, and will continue IV oxacillin Q4 hrs until 01/23, then will be switched to PO Keflex 500 mg every 6 hours for 6 months (until 07/26/17). *Continue Rifampin (until 07/26/17) * Weekly CBC, ESR and CMP while on Oxacillin Please contact Dr. Matias of Infectious Disease about above antibiotic regimen Allergies: Coded Allergies: No Known Allergies (12/11/17) Significant Procedures: 12/12/17: L TKA poly exchange Disposition Summary Disposition Principal Diagnosis: Infection, left total knee replacement Additional Diagnosis: same, s/p L TKA poly exchange Discharge Disposition: SNF Discharge Instructions General Discharge Information Code Status: Full Code Patient's Diet: Regular Patient's Activity: WBAT Follow-Up Instructions/Appts: Follow up with Dr. Kong in 2 weeks from date of surgery. Followup with Dr. Matias in 1 week. Medications at Discharge Discharge Medications: Continue taking these medications: Levothyroxine Sodium (Levothyroxine Sodium) 88 MCG TABLET 1 Tablet ORAL DAILY Comments: Last Taken:11/16/17 Time:5:58 AM Rosuvastatin Calcium (Crestor) 40 MG TABLET 1 Tablet ORAL DAILY Comments: NOT GIVEN IN HOSPITAL. LIPITOR 80 MG GIVEN ON 11/15/17 @ 4:33 PM. Venlafaxine HCl (Venlafaxine HCl ER) 75 MG CAP.ER.24H 1 Capsule ORAL DAILY Comments: Last Taken:11/16/17 Time:8:53 AM Docusate Sodium (Docusate Sodium) 100 MG CAPSULE 100 Milligram ORAL TWICE DAILY Qty = 14 Comments: Last Taken:11/15/17 Time:8:25 PM Oxycodone HCl/Acetaminophen (Percocet 5-325 MG Tablet) 5 MG-325 MG TABLET 1-2 Tablet ORAL EVERY 4 HOURS NEEDED as needed for PAIN SCALE Qty = 36 Comments: Last Taken:11/16/17 Time:8:53 AM Sennosides/Docusate Sodium (Senna Plus Tablet) 8.6 MG-50 MG TABLET 2 Tablet ORAL AT BEDTIME NEEDED as needed for NO BM IN TWO DAYS Qty = 10 Comments: Last Taken:11/15/17 Time:8:25 PM Apixaban (Eliquis) 2.5 MG TABLET 1 Tablet ORAL DAILY Comments: TAKES ONLY DAILY HAD HEMATURIA WITH BID DOSING Start taking the following new medications: Rifampin (Rifampin) 300 MG CAPSULE 1 Tablet ORAL EVERY 12 HOURS Qty = 30 No Refills Oxacillin Sodium/Dextrose,Iso (Oxacillin 2 Gm/ 50 Ml Inj) 2 GRAM/50 ML FROZ.PIGGY 2 Gram INTRAVEN Every 4 hours Qty = 1 No Refills Instructions: stop on January 23 Copies To: Florencio CODY,Jered Reyes
[2017-12-12 14:45] VITALS: BP 120/82
--- NOTE | 2017-12-12 14:48 | PN- Orthopedic ---
Subjective Subjective: Postop check: Patient comfortable, no complaints, no pain in the left knee. Objective Vital Signs and I&Os Intake & Output 12/12 1600 12/12 0800 12/12 0000 12/11 0812/11 0000 Intake Total Output Total Balance Patient 220 lb Weight Vital signs stable, afebrile Physical Exam: Insert postop total knee Well-developed well-nourished no apparent distress. HEENT: Atraumatic, extraocular motion intact Neck: Supple, no lymphadenopathy Respiratory: No respiratory distress Extremities: No edema LEFT lower extremity dressing in place, Dressing clean dry and intact Compression wrap in place. ALPS in place Neurovascularly intact distally Bilateral calves are supple, nontender. Neuro: Alert and oriented x3 Psych: Mood affect normal, normal memory normal judgment. Skin: Warm and dry, no rash on exposed skin Results Last 48 Hours of Labs: Laboratory Tests 12/13 0700 Chemistry Sodium (137 - 145 mmol/L) 139 Potassium (3.5 - 5.1 mmol/L) 3.8 Chloride (98 - 107 mmol/L) 105 Carbon Dioxide (22 - 30 mmol/L) 24 Anion Gap (5 - 16) 9 BUN (7 - 17 mg/dL) 7 Creatinine (0.5 - 1.0 mg/dL) 0.6 Estimated GFR (>60 ml/min) > 60 BUN/Creatinine Ratio (7 - 25 %) 11.7 Hematology CBC w Diff NO MAN DIFF REQ WBC (4.8 - 10.8 /CUMM) 7.8 RBC (4.20 - 5.40 /CUMM) 3.30 L Hgb (12.0 - 16.0 G/DL) 10.6 L Hct (37 - 47 %) 31.5 L MCV (81.0 - 99.0 FL) 95.7 MCH (27.0 - 31.0 PG) 32.3 H MCHC (33.0 - 37.0 G/DL) 33.8 RDW (11.5 - 14.5 %) 15.3 H Plt Count (130 - 400 /CUMM) 313 MPV (7.4 - 10.4 FL) 7.2 L Gran % (42.2 - 75.2 %) 75.4 H Lymphocytes % (20.5 - 51.1 %) 14.7 L Monocytes % (1.7 - 9.3 %) 9.5 H Eosinophils % (0 - 5 %) 0.2 Basophils % (0.0 - 2.0 %) 0.2 Absolute Granulocytes (1.4 - 6.5 /CUMM) 5.9 Absolute Lymphocytes (1.2 - 3.4 /CUMM) 1.1 L Absolute Monocytes (0.10 - 0.60 /CUMM) 0.7 H Absolute Eosinophils (0.0 - 0.7 /CUMM) 0 Absolute Basophils (0.0 - 0.2 /CUMM) 0 Assessment/Plan Assessment/Plan Postop day #0 status post irrigation and debridement left total knee arthroplasty, exchange of polyethylene spacer secondary to wound infection from fall and wound dehiscence IV antibiotics, Ancef every 8 hours Follow intraoperative OR cultures Pain medication as needed. Out of bed Physical therapy, weightbearing as tolerated IV fluids Regular diet Follow a.m. labs Eliquis for DVT prophylaxis starting tomorrow ALPS for DVT prophylaxis Regular home meds Dressing change postop day 2 Core Measures Venous Thromboembolism VTE Risk Factors Surgery No Mechanical VTE Prophylaxis d/t N/A MechProphylax Ordered No VTE Pharm Prophylaxis d/t NA PharmProphylax ordered
[2017-12-12 16:28] VITALS: BP 130/90
--- NOTE | 2017-12-12 16:38 | Cons- Infect Disease ---
General Information and HPI Consulting Request Date of Consult: 12/12/17 Requested By: Maxwell Kong MD Reason for Consult: Rule out infected left knee prosthesis Source of Information: patient, old records History of Present Illness: This is a 67-year-old woman with a history of hypertension, hyperlipidemia, hypothyroidism and osteoarthritis, status post left total knee arthroplasty 4 weeks prior to admission, with Vancomycin prophylaxis, with removal of the sutures 2 weeks postop with no problems reported, seen in the ER 3 days later ( 10 days prior to admission) after a fall at home resulting in dehiscence of the wound, resulting in a 13 cm open area and loss of approximately 300 cc of blood, repaired with 15 sutures, with no inflammation noted 2 days later in the orthopedist's office, admitted today with 1 week of increasing erythema and discomfort of the left knee, with seropurulent drainage, without any fevers or chills. She was taken to the OR for I&D of the left total knee, with retention of the hardware but with exchange of the polyethylene liner, with some cloudy fluid noted. She is presently afebrile. She does note some discomfort in the left knee but offers no other complaints. Allergies/Medications Allergies: Coded Allergies: No Known Allergies (12/11/17) Home Med List: Apixaban (Eliquis) 2.5 MG TABLET 1 TAB PO DAILY VTE PROPHYLAXIS (Reported) Docusate Sodium 100 MG CAPSULE 100 MG PO BID CONSTIPATION Levothyroxine Sodium 88 MCG TABLET 1 TAB PO DAILY REPLACEMENT (Reported) Oxycodone HCl/Acetaminophen (Percocet 5-325 MG Tablet) 5 MG-325 MG TABLET 1-2 TAB PO Q4P PRN PAIN SCALE Rosuvastatin Calcium (Crestor) 40 MG TABLET 1 TAB PO DAILY CHOLESTEROL ( Reported) Sennosides/Docusate Sodium (Senna Plus Tablet) 8.6 MG-50 MG TABLET 2 TAB PO AT BEDTIME NEEDED PRN NO BM IN TWO DAYS Venlafaxine HCl (Venlafaxine HCl ER) 75 MG CAP.ER.24H 1 CAP PO DAILY ANXIETY (Reported) Past History Medical History Blood Transfusion Hx: No Neurological: NONE EENT: cataracts Cardiovascular: hypertension, hyperlipidemia Respiratory: obstructive sleep apnea Gastrointestinal: diverticulitis Hepatic: NONE Renal: NONE Musculoskeletal: falls, osteoarthritis Psychiatric: anxiety Endocrine: hypothyroidism, obesity Blood Disorders: NONE Cancer(s): NONE 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 Home Services at Home: None Smoking Status: Never Smoked Review of Systems Review of Systems All Other Systems: Reviewed and Negative Exam & Diagnostic Data Last 24 Hrs of Vital Signs/I&O Vital Signs Date Time Temp Pulse Resp B/P B/P Pulse O2 O2 Flow FiO2 Mean Ox Delivery Rate 12/12 1445 94 Room Air 12/12 1445 98.4 74 17 120/82 97 Nasal 2.0L Cannula Intake & Output 12/12 1600 12/12 0800 12/12 0000 Intake Total Output Total Balance Patient 230 lb Weight Weight Bed scale Measurement Method Physical Exam Other Physical Findings: She is awake and alert in no acute distress. She is afebrile. Skin reveals no rash. HEENT exam is negative. Neck is supple with no adenopathy. Lungs are clear. Heart regular rhythm with no murmur. Abdomen is soft, nontender with positive bowel sounds. Back no CVA tenderness. Extremities left knee dressing intact, with no cyanosis, clubbing or edema of the lower extremities. Neuro is without focality. Last 24 Hours of Lab Results: No labs have been obtained Last 24 Hours of Ministerio Results: OR cultures pending Assessment/Plan Assessment/Plan Impression: This is a 67-year-old woman status post left total knee arthroplasty 4 weeks prior to admission, status post a fall at home 10 days prior to admission, resulting in dehiscence of the wound, resulting in a 13 cm open area and loss of 300 cc of blood and requiring 15 sutures in the ER, admitted today with increasing erythema and discomfort of the left knee, with seropurulent drainage, now status post I&D of the left total knee arthroplasty, with retention of the hardware but with exchange of the polyethylene liner. Her clinical picture is worrisome for an infection of the left total knee arthroplasty, which most likely developed as result of her recent fall, given the lack of any evidence for infection prior to this trauma. The most likely pathogen is Staph aureus, though other organisms, including gram negatives, must be considered, given that the fall occurred in the bathroom. She can be covered empirically for the most common organisms pending OR cultures. As her surgery was only 4 weeks ago and the putative infection was identified in the past week, there is a good chance that her infection will clear without removal of the hardware, but she will need to be monitored closely. If infection is identified she will require a prolonged course of antibiotics, typically 4-6 weeks of IV, followed by 6 months of oral antibiotics (if Staph aureus is isolated). Suggestion: 1. Follow-up OR cultures 2. Routine blood work including CBC, ESR and CMP 3. Begin Cefazolin 2 g IV every 8 hours pending above Consult Acknowledgment - Thank you for your consult request.
[2017-12-12 18:30] VITALS: BP 120/70
[2017-12-12 20:33] VITALS: BP 126/74
[2017-12-13 00:17] VITALS: BP 124/70
[2017-12-13 04:07] VITALS: BP 128/82
[2017-12-13 08:00] VITALS: BP 127/74
[2017-12-13 08:17] LABS: ABSOLUTE BASOPHIL COUNT 0 /CUMM (0.0-0.2); ABSOLUTE EOSINOPHIL COUNT 0 /CUMM (0.0-0.7); ABSOLUTE GRANULOCYTE CT 5.9 /CUMM (1.4-6.5); ABSOLUTE LYMPH COUNT 1.1 /CUMM (1.2-3.4); ABSOLUTE MONOCYTE COUNT 0.7 /CUMM (0.10-0.60); BASOPHIL % 0.2 % (0.0-2.0); EOSINOPHIL % 0.2 % (0-5); GRANULOCYTE % 75.4 % (42.2-75.2); HEMATOCRIT 31.5 % (37-47); MEAN CORPUSCULAR HGB 32.3 PG (27.0-31.0); MEAN CORPUSCULAR HGB CONC 33.8 G/DL (33.0-37.0); MEAN CORPUSCULAR VOLUME 95.7 FL (81.0-99.0); MEAN PLATELET VOLUME 7.2 FL (7.4-10.4); PLATELET COUNT 313 /CUMM (130-400); RBC DISTRIBUTION WIDTH 15.3 % (11.5-14.5); WHITE BLOOD CELL COUNT 7.8 /CUMM (4.8-10.8)
[2017-12-13 11:56] VITALS: BP 137/79
--- NOTE | 2017-12-13 12:00 | PN- Infect Dx ---
Subjective Subjective: Afebrile. She notes some burning pain in the left knee. Objective Last 24 Hrs of Vital Signs/I&O Vital Signs Date Time Temp Pulse Resp B/P B/P Pulse O2 O2 Flow FiO2 Mean Ox Delivery Rate 12/13 08 98.3 73 18 127/74 97 Room Air 06/ 0407 98.1 68 18 128/82 98 Room Air / 0017 98.1 70 18 124/70 96 /06 2033 98.0 87 18 126/74 94 /06 1936 Room Air 12/12 1830 98.3 77 18 120/70 95 06/06 1628 97.5 72 18 130/90 92 /06 1445 94 Room Air / 1445 98.4 74 17 120/82 97 Nasal 2.0L Cannula Intake & Output 12/13 1600 12/13 0800 12/13 0000 Intake Total 600 1005 Output Total 900 Balance 600 105 Intake, IV 600 525 Intake, Oral 480 Number 0 Bowel Movements Output, Urine 900 Patient 141 lb Weight Weight Bed scale Measurement Method Physical Exam Other Physical Findings: She appears comfortable in no acute distress Extremities left knee dressing intact Results Last 24 Hours of Lab Results: Laboratory Tests 12/13 0700 Chemistry Sodium (137 - 145 mmol/L) 139 Potassium (3.5 - 5.1 mmol/L) 3.8 Chloride (98 - 107 mmol/L) 105 Carbon Dioxide (22 - 30 mmol/L) 24 Anion Gap (5 - 16) 9 BUN (7 - 17 mg/dL) 7 Creatinine (0.5 - 1.0 mg/dL) 0.6 Estimated GFR (>60 ml/min) > 60 BUN/Creatinine Ratio (7 - 25 %) 11.7 Hematology CBC w Diff NO MAN DIFF REQ WBC (4.8 - 10.8 /CUMM) 7.8 RBC (4.20 - 5.40 /CUMM) 3.30 L Hgb (12.0 - 16.0 G/DL) 10.6 L Hct (37 - 47 %) 31.5 L MCV (81.0 - 99.0 FL) 95.7 MCH (27.0 - 31.0 PG) 32.3 H MCHC (33.0 - 37.0 G/DL) 33.8 RDW (11.5 - 14.5 %) 15.3 H Plt Count (130 - 400 /CUMM) 313 MPV (7.4 - 10.4 FL) 7.2 L Gran % (42.2 - 75.2 %) 75.4 H Lymphocytes % (20.5 - 51.1 %) 14.7 L Monocytes % (1.7 - 9.3 %) 9.5 H Eosinophils % (0 - 5 %) 0.2 Basophils % (0.0 - 2.0 %) 0.2 Absolute Granulocytes (1.4 - 6.5 /CUMM) 5.9 Absolute Lymphocytes (1.2 - 3.4 /CUMM) 1.1 L Absolute Monocytes (0.10 - 0.60 /CUMM) 0.7 H Absolute Eosinophils (0.0 - 0.7 /CUMM) 0 Absolute Basophils (0.0 - 0.2 /CUMM) 0 Last 24 Hours of Ministerio Results: OR cultures December 12 labeled left knee synovial fluid, left knee superficial culture and left knee synovium all positive for Staph aureus Assessment/Plan ID Impression: Stable, with temperatures and white blood cell count normal, on Cefazolin, Day 1 of treatment for an 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 She will require a 4-6 week course of IV antibiotics (with Rifampin), followed by a 6 month course of oral antibiotics. She is aware of the possibility that, if the hardware is infected, the infection may relapse once she is off antibiotics, in which case she would then require removal of the hardware. Suggestion: 1. Would proceed with placement of a PICC 2. Follow-up final OR cultures 3. Would check an ESR 4. Discontinue Cefazolin 5. Begin Oxacillin 2 g IV every 4 hours and Rifampin 450 mg p.o. every 12 hours
--- NOTE | 2017-12-13 16:52 | INTERVENTIONAL RADIOLOGY RPT ---
CLINICAL HISTORY: This patient is a 67 year old female with a history of sepsis, who presents to Interventional Radiology for placement of a double lumen PICC for central venous access. PROCEDURES: 1. Real-time ultrasound-guided access into the left basilic vein after documentation of selected vessel patency, and permanent imaging storing in the patient records. 2. Placement of a PICC. PHYSICIANS: Dr. Carter (attending). MEDICATIONS: Lidocaine 1%, 10 mL SQ. CONTRAST: None FLUOROSCOPY TIME: 2.5 minutes DAP: 10.2 uGym2 COMPLICATIONS: None ESTIMATED BLOOD LOSS: Scant SPECIMENS: None IMPLANT: 5 Fr Power PICC SITE MARKING: As part of the preprocedure verification policy, a site marking procedure was initiated. Due to the nature the procedure, the insertion site could not be predetermined thus invoking the policy of exemption to site laterality and marking. Insertion site marking was performed in the procedure room in conjunction with imaging confirmation. PROCEDURE NOTE: Informed consent was obtained from the patient prior to the procedure. During this process, the procedure and potential alternatives were explained along with the intended outcome and benefits. The risks of the procedure, including the possibility of an unsuccessful procedure, as well as the risk of not doing the procedure, were discussed. The patient was given the opportunity to ask questions regarding the procedure and appeared competent to make decisions. A signed consent form documenting this discussion was placed in the medical record. A time-out procedure was performed. The patient was placed supine on the fluoroscopy table. Prior to prepping the patient, a limited sonogram of the left arm was performed to choose appropriate access, and this arm was prepped and draped in the usual sterile fashion. All elements of maximal sterile barrier technique followed including use of cap, mask, sterile gown, sterile gloves, a sterile full body drape and hand hygiene. Also followed skin preparation with 2% chlorhexidine for cutaneous antisepsis, and sterile ultrasound preparation with sterile gel and probe cover when applicable. Venous access was achieved into the left basilic vein using ultrasound and fluoroscopic guidance. Initially, difficulty was encountered when advancing the 0.018 inch wire and the basilic vein. 1 mL of Optiray 320 contrast was injected which demonstrated small amount of extravasation and venous spasm. The needle was removed and venous access was obtained into a more central portion of the basilic vein. The 0.018 measuring wire from the PICC was advanced into the cavoatrial junction. The needle was removed and replaced with the peel away sheath. The intravascular length was measured and the catheter was trimmed to the correct length. The inner dilator was removed and the PICC was advanced over the wire into the cavoatrial junction. The peel away sheath and wire were removed. The catheter was tested successfully and secured to the skin with its tip in the cavoatrial junction. A spot image was taken. The patient tolerated the procedure well. FINDINGS: 1. Patent right basilic vein. 2. Successful placement of a 5-Fr no lumen PICC that measures 48 cm in length. IMPRESSION: Successful placement of a PICC. PLAN: 1. The patient was stable after the procedure and was transferred to the interventional recovery area. The patient will be transferred back to her medical room. 2. The catheter may be used immediately.
[2017-12-13 22:27] VITALS: BP 130/70
[2017-12-14 06:55] VITALS: BP 138/80
--- NOTE | 2017-12-14 08:40 | PN- Orthopedic ---
Subjective Subjective: pod#2 s/p left tka poly exchange/i&d no major issues overnight denies cp, sob, no n+v appreciate id consult started on oxacillin yesterday OR cx's' demonstrate light growth s. aureus PICC line palced yesterday by IR Objective Vital Signs and I&Os Vital Signs Date Time Temp Pulse Resp B/P B/P Pulse O2 O2 Flow FiO2 Mean Ox Delivery Rate 12/14 0655 98.3 66 18 138/80 96 Room Air / 2227 98.6 77 19 130/70 95 Room Air / 1544 Room Air 2.0L / 1156 99.0 81 18 137/79 97 Room Air Intake & Output 12/14 1600 12/14 0800 / 0000 / 1600 12/13 0800 / 0000 Intake Total 1040 1055 8437 101 0367 Output Total 500 900 Balance 1040 1055 1220 600 105 Intake, IV 800 575 700 600 525 Intake, Oral 509 508 2141 480 Number 1 0 0 Bowel Movements Output, Urine 500 900 Patient 233 lb 141 lb Weight Weight Bed scale Bed scale Measurement Method Physical Exam: cv: rrr lungs: clear abd: soft, +bs ext: drsg changed erythematous wound edges, no cellulitis present no effusion calves soft, distal cms intact Assessment/Plan Assessment/Plan ortho stable await final OR cx's plan iv oxacillin oob with pt likely snf tomorrow cont all others for now Core Measures Venous Thromboembolism VTE Risk Factors Surgery No Mechanical VTE Prophylaxis d/t N/A MechProphylax Ordered No VTE Pharm Prophylaxis d/t NA PharmProphylax ordered
--- NOTE | 2017-12-14 13:18 | PN- Infect Dx ---
Subjective Subjective: Afebrile without complaints Objective Last 24 Hrs of Vital Signs/I&O Vital Signs Date Time Temp Pulse Resp B/P B/P Pulse O2 O2 Flow FiO2 Mean Ox Delivery Rate 12/14 08 Room Air 12/14 0655 98.3 66 18 138/80 96 Room Air 12/13 2227 98.6 77 19 130/70 95 Room Air 12/13 1544 Room Air 2.0L Intake & Output 12/14 1600 12/14 0800 12/14 0000 Intake Total 1040 1055 Output Total Balance 1040 1055 Intake, IV 800 575 Intake, Oral 240 480 Number 1 Bowel Movements Patient 233 lb Weight Weight Bed scale Measurement Method Physical Exam Other Physical Findings: She appears comfortable in no acute distress Extremities left knee incision clean, with no erythema or drainage and minimal tenderness to palpation; PICC in place in the right upper extremity Results Last 24 Hours of Lab Results: Laboratory Tests 12/15 619 Hematology ESR Westergren (0 - 20 MM) 35 H Last 24 Hours of Ministerio Results: OR cultures December 12 label left synovial fluid, left synovium and superficial left knee all positive for Staph aureus sensitive to Oxacillin Assessment/Plan ID Impression: Stable, with temperatures and white blood cell count remaining normal, on Oxacillin and Rifampin, 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 She will require a 4-6 week course of IV antibiotics (with Rifampin), followed by a 6 month course of combination oral antibiotics. She is aware of the possibility that, if the hardware is infected, the infection may relapse once she is off antibiotics, in which case removal of the hardware would be necessary. Suggestion: 1. Add liver enzymes to yesterday's blood work for a baseline in view of treatment with Rifampin 2. Continue Oxacillin for 6 weeks (until January 23), at which point would change to p.o. Keflex 500 mg every 6 hours for 6 months (until July 26) 3. Continue Rifampin (until July 26) 4. Weekly CBC, ESR and CMP while on Oxacillin
[2017-12-14 14:41] VITALS: BP 120/64
[2017-12-14 22:08] VITALS: BP 151/84
[2017-12-15] MEDS ORDERED: RIFAMPIN300 M1 PO (05:56)
[2017-12-15] MEDS ORDERED: OXACILLIN2 GM/50 M1 IV (06:01)
[2017-12-15 06:20] VITALS: BP 150/86
--- NOTE | 2017-12-15 07:35 | PN- Orthopedic ---
See Addendum Subjective Subjective: feeling well, no pain. ready to dc from hospital. no fevers, no cp/sob/n/v. Objective Vital Signs and I&Os Vital Signs Date Time Temp Pulse Resp B/P B/P Pulse O2 O2 Flow FiO2 Mean Ox Delivery Rate 12/16 619 98.6 77 18 150/86 95 CPAP 12/14 2208 98.9 72 18 151/84 97 BIPAP 12/14 1441 98.1 65 20 120/64 95 12/14 0800 Room Air Intake & Output 12/15 0800 12/15 0000 12/14 1600 12/14 0800 12/14 0000 12/13 1600 Intake Total 200 938 783 8680 1055 1720 Output Total 500 Balance 200 111 482 2442 1055 1220 Intake, IV 600 800 575 700 Intake, Oral 200 200 360 502 165 [id number] Number 1 0 Bowel Movements Output, Urine 500 Patient 233 lb Weight Weight Bed scale Measurement Method Physical Exam: gen- nad card-s1s2 pulm- no audible wheeze abd- soft nt ext- left knee sutures in place, scant serosang dried on gauze- changed to telfa , ttp at incision, no erythema, no purulence. calves soft nt bl, alps on. plap dp bl. gorss sensation.motor intact bl. picc line in place lue- site cdi, dressing clean. Results Last 48 Hours of Labs: Laboratory Tests 12/15 619 Hematology ESR Westergren (0 - 20 MM) 35 H Assessment/Plan Assessment/Plan A- POD 3 sp poly exchange L TKR for infection, improving on IV abx per ID via picc, stable for transfer to [facility] today. P- WBAT. OOB. Appreciate ID recs. continue current abx hl. dc planning will dw attending Core Measures Venous Thromboembolism VTE Risk Factors Surgery No Mechanical VTE Prophylaxis d/t N/A MechProphylax Ordered No VTE Pharm Prophylaxis d/t NA PharmProphylax ordered
[2017-12-15 09:53] VITALS: BP 150/86
== END 2017-12-15 10:48 | DRG 468 ==
LOC: SDA 04:08 → 2NA 04:08 → STS 07:00 → EDSTATUS 07:00 → ENRESERV 13:09 → ENTRNSPT 14:12 → EDTRNSPT 14:18 → EDTRNSPTSTS 14:18 → 2NA 14:28 → CMPTRNSPT 14:36 → 2NA 12-13 16:18 → ENPENDDIS 12-15 07:39 → ENTRNSPT 12-15 10:25 → EDTRNSPT 12-15 10:37 → EDTRNSPTSTS 12-15 10:37 → 2NA 12-15 10:48 → CMPTRNSPT 12-15 10:58
PROVIDERS: Physician Assistant Surgical
PROC: 0SRD0JA Replacement of Left Knee Joint with Synthetic Substitute, Uncemented, Open Approach (ICD-10-PCS; principal; 2017-12-12)
PROC: 0SPD0JZ Removal of Synthetic Substitute from Left Knee Joint, Open Approach (ICD-10-PCS; principal; 2017-12-12)
PROC: 0SBD0ZZ Excision of Left Knee Joint, Open Approach (ICD-10-PCS; principal; 2017-12-12)
PROC: 02HV33Z Insertion of Infusion Device into Superior Vena Cava, Percutaneous Approach (ICD-10-PCS; 2017-12-12)
DX: T84.54XA Infection and inflammatory reaction due to internal left knee prosthesis, initial encounter (principal); E78.5 Hyperlipidemia, unspecified; E66.9 Obesity, unspecified; B95.61 Methicillin susceptible Staphylococcus aureus infection as the cause of diseases classified elsewhere; G47.33 Obstructive sleep apnea (adult) (pediatric); I10 Essential (primary) hypertension; E03.9 Hypothyroidism, unspecified; Z91.81 History of falling; F41.9 Anxiety disorder, unspecified
CPT/HCPCS: 2NASP; 87070; 87075; 36415; 36592; 77001; 82436; 87147; 88305; 97110-GO; 97116-GO; 97161-GP; 97530-GO; C1769; C9290; J0690; J1100; J1642; J2001; J3490